=== PATIENT | female | born 1985 | race Caucasian/White ===

== ENCOUNTER 2017-06-02 13:26 | Emergency (ER) | payer MEDICAID ==
[2017-06-02] MEDS ORDERED: NEOMYCIN/POLYMYXIN B SULF/HC 10ML BTL OT ONE (14:02)
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
== END 2017-06-02 14:27 | disposition home or self-care (01) ==
LOC: ER 13:26
DX: H60.501 Unspecified acute noninfective otitis externa, right ear (principal); R11.0 Nausea; F41.0 Panic disorder [episodic paroxysmal anxiety]; Z87.891 Personal history of nicotine dependence
CPT/HCPCS: 93005; 93010; 99282

== ENCOUNTER 2018-03-19 21:12 | Emergency (ER) | payer MEDICAID ==
--- NOTE | 2018-03-19 21:26 | Emergency Department Record ---
History of Present Illness - General Stated Complaint: "NOT FEELING RIGHT" Time Seen by Provider: 03/19/18 21:20 Source: Patient Mode of Arrival: Ambulatory Limitations: No limitations - History of Present Illness Initial comments: 32 yop female presents to ED for "not feeling right". Patient reports that she feels more tired than usual and reports that her anxiety is worsen than usual. Patient denies urinary symptoms, fevers, chills, cough, abdominal pain, or chest pain symptoms. Patient has not seen her PCP for her symptoms, and denies previous evaluation of her thyroid. Patient cannot give more specific symptoms other than fatigue. -: Days(s) Consistency: Constant Improves with: None Worsens with: None Associated Symptoms: Denies other symptoms Treatments Prior to Arrival: None - [place] Coma Scale Eye Response: (4) Open spontaneously Motor Response: (6) Obeys commands Verbal Response: (5) Oriented [place] Total: 15 - Related Data Allergies Allergy/AdvReac Type Severity Reaction Status Date / Time tramadol AdvReac NAUSEA AND Verified 06/02/17 13:48 VOMITING Review of Systems Constitutional: Reports: Malaise. Denies: Chills, Fever, Night sweats Eyes: Denies: Eye discharge, Eye pain ENT: Denies: Congestion, Ear pain, Epistaxis Respiratory: Denies: Cough, Dyspnea Cardiovascular: Denies: Chest pain, Dyspnea on exertion Endocrine: Reports: Fatigue. Denies: Heat or cold intolerance Gastrointestinal: Denies: Abdominal pain, Nausea, Vomiting Genitourinary: Denies: Incontinence, Retention Musculoskeletal: Denies: Arthralgia, Back pain Skin: Denies: Bruising, Change in color Neurological: Denies: Abnormal gait, Confusion, Headache, Seizure Psychiatric: Denies: Anxiety Hematological/Lymphatic: Denies: Anemia, Blood Clots Past Medical History - SOCIAL HISTORY Smoking Status: Former smoker Drug Use: None - RESPIRATORY Hx Respiratory Disorders: No - CARDIOVASCULAR Hx Cardio Disorders: No - NEURO Hx Neuro Disorders: No - GI Hx GI Disorders: Yes Hx Hiatal Hernia: Yes - Hx Genitourinary Disorders: No - ENDOCRINE Hx Endocrine Disorders: No - MUSCULOSKELETAL Hx Musculoskeletal Disorders: Yes Comment:: scoliosis - PSYCH Hx Psych Problems: Yes Hx Anxiety: Yes Hx Depression: Yes - HEMATOLOGY/ONCOLOGY Hx Hematology/Oncology Disorders: No Hx Blood Transfusions: Yes Hx Blood Transfusion Reaction: No Physical Exam - General General Appearance: Alert, Oriented x3, Cooperative, No acute distress, Other ( Smiling, well appearing on examination.) Limitations: No limitations - Head Head exam: Atraumatic, Normocephalic, Normal inspection Head exam detail: negative: Abrasion, Contusion, Quezada's sign, General tenderness, Hematoma, Laceration - Eye Eye exam: Normal appearance. negative: Conjunctival injection, Periorbital swelling, Periorbital tenderness, Scleral icterus - ENT Ear exam: negative: Auricular hematoma, Auricular trauma Nasal Exam: negative: Discharge, Dried blood, Foreign body Mouth exam: negative: Drooling, Laceration, Muffled voice, Tongue elevation - Neck Neck exam: Normal inspection. negative: Meningismus, Tenderness - Respiratory Respiratory exam: Normal lung sounds bilaterally. negative: Rales, Respiratory distress, Rhonchi, Stridor - Cardiovascular Cardiovascular Exam: Regular rate, Normal rhythm, Normal heart sounds - GI/Abdominal GI/Abdominal exam: Soft. negative: Rebound, Rigid, Tenderness - Rectal Rectal exam: Deferred - exam: Deferred - Extremities Extremities exam: Full ROM. negative: Pedal edema - Back Back exam: Denies: CVA tenderness (R), CVA tenderness (L) - Neurological Neurological exam: Alert, Normal gait, Oriented X3 - Psychiatric Psychiatric exam: Normal affect, Normal mood - Skin Skin exam: Normal color. negative: Abrasion Type of lesion: negative: abrasion Course Vital Signs 03/19/18 21:18 Temperature 98 F Pulse Rate [ 91 H Pulse Ox Probe] Respiratory 20 Rate Blood Pressure 121/78 [Left Arm] Pulse Ox 96 - Reevaluation(s) Reevaluation #1: 03/19/18 21:36 EKG: NSR 81 Normal axis, normal intervals No acute ST-T wave changes are present. Reevaluation #2: 03/19/18 22:18 Laboratory studies were reviewed and are grossly unremarkable for an acute process. Patient was updated on all results and appears stable for discharge at this time. Medical Decision Making - Lab Data Result diagrams: 03/19/18 21:38 03/19/18 21:38 Disposition Disposition: Discharge Clinical Impression: Fatigue Qualifiers: Fatigue type: unspecified Qualified Code(s): R53.83 - Other fatigue Disposition: Home, Self-Care Condition: (2) Stable Instructions: Fatigue (ED) Additional Instructions: Return to ED if your symptoms worsen or if you have any concerns. Follow-up with your family doctor in 3-5 days as directed. Time of Disposition: 22:19 Quality - Quality Measures Quality Measures: N/A - Blood Pressure Screening Does Patient Have Any of the Following: No Blood Pressure Classification: Pre-Hypertensive BP Reading Systolic Measurement: 121 Diastolic Measurement: 78 Screening for High Blood Pressure: < Pre-Hypertensive BP, F/U Documented > [ G8950] Pre-Hypertensive Follow-up Interventions: Referral to alternative/primary care provider.
[2018-03-19 21:44] LABS: BASO % 0.3 % (0-6); EOS % 1.6 % (0-6); GRAN % 55.8 % (47-80); HEMATOCRIT 38.4 % (35.0-47.0); HEMOGLOBIN 12.8 gm/dl (11.6-16.0); LYMPH % 33.2 % (16-45); MEAN CELL VOLUME 83.5 fl (81-97); MEAN CORPUSCULAR HEMOGLOBIN 27.8 pg (27-33); MEAN CORPUSCULAR HGB CONC 33.3 g/dl (32-36); MEAN PLATELET VOLUME 8.5 fl (7.4-10.4); MONO % 9.1 % (0-9); PLATELET COUNT 305 K/uL (130-400); WHITE BLOOD COUNT W/O DIFF 9.3 K/uL (4.2-12.2)
[2018-03-19 21:50] LABS: URINE APPEARANCE CLEAR; URINE BILIRUBIN NEGATIVE (NEGATIVE); URINE BLOOD NEGATIVE (NEGATIVE); URINE COLOR YELLOW; URINE GLUCOSE (UA) NEGATIVE (NEGATIVE); URINE KETONE NEGATIVE (NEGATIVE); URINE LEUKOCYTE ESTERASE NEGATIVE (NEGATIVE); URINE NITRITE NEGATIVE (NEGATIVE); URINE PROTEIN NEGATIVE (NEGATIVE); URINE UROBILINOGEN 0.2 E.U./dL (0.20 - 1.00)
[2018-03-19 21:52] LABS: HCG,QUALITATIVE URINE NEGATIVE (NEGATIVE)
[2018-03-19 21:58] LABS: BLOOD UREA NITROGEN 11 mg/dL (6-20); CREATININE 0.7 mg/dL (0.5-0.9); EST GLOMERULAR FILTRATION RATE > 60 mL/min; TOTAL PROTEIN 6.8 g/dL (6.6-8.7)
[2018-03-19 22:00] LABS: GLUCOSE,RANDOM 95 mg/dL (74-109)
[2018-03-19 22:03] LABS: ALB/GLOB RATIO 1.5 (1.1-1.8); ALBUMIN 4.1 g/dL (4.0-5.0); ALKALINE PHOSPHATASE 74 U/L (35-104); ALT/SGPT 16 U/L (<33); AST/SGOT 12 U/L (10.0-35.0)
[2018-03-19 22:14] LABS: THYROID STIMULATING HORMONE 2.94 uIU/mL (0.270-4.20)
== END 2018-03-19 22:27 | disposition home or self-care (01) ==
LOC: ER 21:12
DX: R53.83 Other fatigue (principal); R42 Dizziness and giddiness; Z87.891 Personal history of nicotine dependence
CPT/HCPCS: 80053; 81003; 81025; 84443; 85025; 93005; 93010; 99284

== ENCOUNTER 2019-05-15 20:24 | Emergency (ER) | payer MEDICAID ==
--- NOTE | 2019-05-15 20:44 | Emergency Department Record ---
History of Present Illness - General Chief complaint: Abscess Stated complaint: SORE UNDER RT ARM Time Seen by Provider: 05/15/19 20:32 Source: Patient Mode of Arrival: Ambulatory Limitations: No limitations - History of Present Illness Initial comments: The patient has felt pain and an area of swelling under the R arm for a day. She is concerned she has an abscess. complaint: Abscess/boil Onset/Timin -: Days(s) Hx Tetanus Toxoid Vaccination: Yes Year of Tetanus Vaccination: 2018 Location: RUE Severity: Mild Severity scale (1-10): 3 Quality: Aching, Burning Consistency: Constant Improves with: None Worsens with: None Context: None Associated symptoms: Denies other symptoms Treatments Prior to Arrival: Other Treatment Prior to Arrival Comment:: warm compress - Related Data Previous Rx's Medication Instructions Recorded Clindamycin HCl [Cleocin HCl] 300 mg PO QID #28 capsule 05/15/19 Allergies Allergy/AdvReac Type Severity Reaction Status Date / Time tramadol AdvReac NAUSEA AND Verified 05/15/19 20:40 VOMITING Travel Screening - Travel/Exposure Within Last 30 Days Have you traveled within the last 30 days?: No - Travel/Exposure Within Last Year Have you traveled outside the [place] in the last year?: No - Additonal Travel Details Have you been exposed to anyone with a communicable illness?: No - Travel Symptoms Symptom Screening: None Review of Systems Constitutional: Denies: Chills, Fever Past Medical History - SOCIAL HISTORY Smoking Status: Current some day smoker Alcohol Use: Rare Drug Use: None - RESPIRATORY Hx Respiratory Disorders: No - CARDIOVASCULAR Hx Cardio Disorders: No - NEURO Hx Neuro Disorders: No - GI Hx GI Disorders: Yes Hx Hiatal Hernia: Yes - Hx Genitourinary Disorders: No - ENDOCRINE Hx Endocrine Disorders: No - MUSCULOSKELETAL Hx Musculoskeletal Disorders: Yes Comment:: scoliosis - PSYCH Hx Psych Problems: Yes Hx Anxiety: Yes Hx Depression: Yes - HEMATOLOGY/ONCOLOGY Hx Hematology/Oncology Disorders: No Hx Blood Transfusions: Yes Hx Blood Transfusion Reaction: No Family Medical History Any Significant Family History?: No Hx Alcohol Use: Father Hx Anxiety: Father, Grandparents Hx Heart Disease: Mother, Grandparents Physical Exam - General General Appearance: Alert, Cooperative, No acute distress - Head Head exam: Atraumatic - Eye Eye exam: Normal appearance - Respiratory Respiratory exam: Normal lung sounds bilaterally. negative: Respiratory distress - Cardiovascular Cardiovascular Exam: Regular rate, Normal rhythm, Normal heart sounds - Extremities Extremities exam: Other (There is a 1x2 cm superficial abscess near the R axilla over the medial proximal R arm. There is very minimal surrounding erythema and mild tenderness present.). negative: Normal inspection - Neurological Neurological exam: Alert, Normal gait, Other (The R arm is NVI.). negative: Abnormal gait, Motor sensory deficit - Psychiatric Psychiatric exam: negative: Anxious Course Vital Signs 05/15/19 20:30 Temperature 99 F Pulse Rate [ 83 Pulse Ox Probe] Respiratory 20 Rate Blood Pressure 120/72 [Left Arm] Pulse Ox 95 - Reevaluation(s) Reevaluation #1: Procedure note: The R arm abscess was prepped with betadine and anesth. with 3 cc's Lido 1%. The abscess was opened up with a # 11 blade and a mod amount of purulence was removed. The abscess was then probed and loosely packed with iodoform gauze. There were no complications. 05/15/19 21:00 Reevaluation #2: I did discuss the need to keep the area dry for 2 days and then to remove the packing at home. She is to take the Clindamycin and return for any worsening issues. 05/15/19 21:01 Disposition Disposition: Discharge Clinical Impression: Arm abscess Disposition: Home, Self-Care Condition: (2) Stable Instructions: Abscess Incision and Drainage (ED) Additional Instructions: Keep dry and covered. Remove the packing in 2 days. Take the Clindamycin as directed. Return to the ER for any worsening issues. Please see your family doctor next week for recheck. Prescriptions: Clindamycin HCl [Cleocin HCl] 300 mg PO QID #28 capsule Forms: Patient Portal Access Time of Disposition: 21:00 Quality - Quality Measures Quality Measures: N/A - Blood Pressure Screening View Details: Yes Does Patient Have Any of the Following: No Blood Pressure Classification: Pre-Hypertensive BP Reading Systolic Measurement: 120 Diastolic Measurement: 72 Screening for High Blood Pressure: < Pre-Hypertensive BP, F/U Documented > [G8950] Pre-Hypertensive Follow-up Interventions: Referral to alternative/primary care provider.
[2019-05-15] MEDS ORDERED: CLINDAMYCIN 150 MG CAP PO ONE (20:55)
== END 2019-05-15 21:08 | disposition home or self-care (01) ==
LOC: ER 20:24
DX: L02.413 Cutaneous abscess of right upper limb (principal); Z87.891 Personal history of nicotine dependence
CPT/HCPCS: 10060; 99284